=== PATIENT | male | born 1990 | race African-American/Black ===

== ENCOUNTER 2019-05-14 12:10 | Inpatient (IN) | payer MEDICAID ==
[~2019-05-14] VITALS: Ht 177.8 cm; Wt 133.6 kg
--- NOTE | 2019-05-14 12:15 | NUR ---
BIB BY ANTHON[facility] FOR WITNESSED SEIZURES (TOTAL OF 3 THIS MORNING) HX OF. EMS FOUND PATIENT A+OX1 ASSUMED POST-ICTAL. REMSA PLACED PIV AND GAVE 2MG OF IV VERSED, FSBS 128. ON KEPPRA-TOOK THIS AM BUT THREW IT UP SHORTLY THERAFTER ON ARRIVAL NON-RESPONSIVE, DROOLING, FLAILING ARMS AROUND. PROVIDER TO BEDSIDE- TO RE-MEDICATE POX 98% ON NRB
[2019-05-14] MEDS ORDERED: LORazepam 2 MG/ML, 1ML ONE ×3 (12:17→12:43)
--- NOTE | 2019-05-14 12:20 | NUR ---
PATIENT REMAIN NON-RESPONSIVE, FLAILING AERM ABOUT/DROOLING DESPITE 2 OF VERSED AND 2 OF ATIVAN- PROVIDER TO BEDSIDE-PLAN TO MEDICATE WITH ADDITIONAL 2MG OF ATIVAN AND PREPARE FOR RSI. (RT TO BEDSIDE_ JAW THRUST IN PLACE TO MAINTAIN ARM WAY AND PATIENT NOW SNORING/NRB IN PLACE AT WELL SEIZURE PADS IN PLACE
--- NOTE | 2019-05-14 12:25 | NUR ---
2MG OF VERSED 1214 2MG ATIVAN IV 1220 2MG ATIVAN IV 1225
[2019-05-14] MEDS ORDERED: PLEASE ENTER HEIGHT AND WEIGHT MC SCH (12:30)
[2019-05-14] MEDS ORDERED: LORazepam 2 MG/ML, 1ML IVPush ONE ×2 (12:30)
[2019-05-14] MEDS ORDERED: PLEASE ENTER ALLERGIES MC SCH (12:30)
[2019-05-14] MEDS ORDERED: LEVE100020 PO ×2 (12:46)
--- NOTE | 2019-05-14 12:46 | NUR ---
1238 20 of etomidate 1242 120mg od succinylcholine 8.0 tube 27cm at the lip placed at [address] Ray/Student Propofol started 15mcg/kg Soft wrist restraints in place
[2019-05-14] MEDS ORDERED: PROPOFOL 100 ML IV ONE ×2 (12:53→14:25)
--- NOTE | 2019-05-14 12:57 | NUR ---
rt made com writer/md aware that et tube cuff has leak and needs to be replaced. provider to bedside plan to exchange tube over bougie et cuff functional at this time with [employer] clamped (pox 97% on fio2 100%) propofol to 50 (from 15) and given 2mg versed at 1250 for coughing/arm movements per Dr. Ray
[2019-05-14] MEDS ORDERED: ETOMIDATE 20 MG/10 ML IVPush ONE (13:00)
[2019-05-14] MEDS ORDERED: SUCCINYLCHOLINE 20 MG/ML, 10ML IVPush ONE (13:00)
[2019-05-14] MEDS ORDERED: MIDAZOLAM 1 MG/ML, 2ML IVPush ONE ×2 (13:20→13:55)
[2019-05-14 13:32] LABS: MEAN CORPUSCULAR HEMOGLOBIN 31.3 pg (27.5-34.5); MEAN CORPUSCULAR HGB CONC 33.9 g/dL (33.2-36.2); MEAN CORPUSCULAR VOLUME 92.5 fL (81-97); MEAN PLATELET VOLUME 8.6 fL (7.4-10.4); PLATELET COUNT 276 x10^3/uL (130-400); RED BLOOD COUNT 4.98 x10^6/uL (4.38-5.82); RED CELL DISTRIBUTION WIDTH 13.3 % (9.4-14.8)
[2019-05-14 13:36] LABS: ALANINE AMINOTRANSFERASE 125 U/L (12-78); ALBUMIN 4.1 g/dL (3.4-5.0); ALKALINE PHOSPHATASE 62 U/L (45-117); ANION GAP 16 mmol/L (5-15); BILIRUBIN,TOTAL 0.4 mg/dL (0.2-1.0); CALCIUM 8.5 mg/dL (8.5-10.1); CHLORIDE 112 mmol/L (98-107); CREATININE 1.28 mg/dL (0.7-1.3); TOTAL PROTEIN 8.2 g/dL (6.4-8.2)
--- NOTE | 2019-05-14 13:43 | NUR ---
REPORT TO TONA DIAZ IN CCU & TONA NELSON IN ER, PT CARE TRANSFERRED AT THIS TIME. EDRN TO PLACE CUNHA & NG TUBE & CCU MD TO EVALUATE PRIOR TO TRANSFER TO CCU
--- NOTE | 2019-05-14 13:45 | NUR ---
RECEIVED REPORT FROM TONA CASEY.
[2019-05-14 13:47] LABS: MD YES
[2019-05-14 13:49] LABS: BAND#(MANUAL) 2.64 x10^3/uL; BANDS%(MANUAL) 16 % (0-7); EOS#(MANUAL) 0.17 x10^3/uL (0.0-0.4); EOS% (MANUAL) 1 % (1-7); LYMPH#(MANUAL) 1.16 x10^3/uL (1-3.4); LYMPHS% (MANUAL) 7 % (22-44); MONOS#(MANUAL) 1.32 x10^3/uL (0.3-2.7); MONOS% (MANUAL) 8 % (2-9); SEG#(MANUAL) 11.22 x10^3/uL (1.8-6.8); SEGS% (MANUAL) 68 % (42-75)
[2019-05-14 13:50] LABS: <PLATELET ESTIMATE> ADEQUATE; <PLT MORPHOLOGY> NORMAL PLT MORPH; ANISOCYTOSIS 1+; POLYCHROMASIA 1+
[2019-05-14] MEDS ORDERED: SODIUM CHLORIDE 0.9%, 500ML IVBOLUS ONE (14:00)
[2019-05-14] MEDS ORDERED: ENOXAPARIN 40 MG/0.4 ML SQ SCH (14:00)
--- NOTE | 2019-05-14 14:00 | NUR ---
PT HAD NG TUBE AND CUNHA PLACED PER ED ORDER. PT REPOSITIONED ON GURNEY. XR AT BEDSIDE.
--- NOTE | 2019-05-14 14:05 | NUR ---
UPDATES GIVEN TO [place], RECEIVING RN IN ICU.
[2019-05-14] MEDS ORDERED: MIDAZOLAM 1 MG/ML, 5ML ONE (14:20)
[2019-05-14] MEDS ORDERED: VECURONIUM 10 MG ONE (14:20)
[2019-05-14] MEDS ORDERED: PROPOFOL 10 MG/ML, 20ML ONE (14:20)
[2019-05-14] MEDS ORDERED: PROPOFOL 10 MG/ML, 100ML IV ONE (14:20)
[2019-05-14] MEDS ORDERED: ETOMIDATE 20 MG/10 ML ONE (14:20)
[2019-05-14] MEDS ORDERED: SUCCINYLCHOLINE 20 MG/ML, 10ML ONE (14:20)
[2019-05-14] MEDS ORDERED: VECURONIUM 10 MG IVPush ONE (15:00)
[2019-05-14] MEDS ORDERED: LEVETIRACETAM 1,000 MG in SODIUM CHLORIDE 0.9% 100 ML IV ONE (16:00)
[2019-05-14] MEDS ORDERED: DEXTROSE 50%, 50ML SYRINGE IVPush PRN (16:00)
[2019-05-14] MEDS ORDERED: DEXTROSE 4 GM TAB.CHEW PO PRN (16:00)
[2019-05-14] MEDS ORDERED: SODIUM CHLORIDE 0.9% 1,000 ML IV SCH (16:00)
[2019-05-14] MEDS ORDERED: LORazepam 2 MG/ML, 1ML IVPush PRN (16:00)
[2019-05-14] MEDS ORDERED: PHARMACY MAY ADJ FOR RENAL FX MC SCH (16:00)
[2019-05-14] MEDS ORDERED: GLUCAGON 1 MG IM PRN (16:00)
[2019-05-14] MEDS ORDERED: LIDOCAINE-MPF 1%, 2ML ENDO PRN (16:00)
[2019-05-14] MEDS: HEPARIN 5,000 UNITS/ML, 1ML SQ SCH (16:53)
[2019-05-14] MEDS: PROPOFOL 100 ML IV PRN ×3 (16:53→22:31)
[2019-05-14] MEDS: AMPICILLIN/SULBACTAM 3 GM in SODIUM CHLORIDE 0.9% 100 ML IV SCH ×2 (17:07→23:14)
[2019-05-14] MEDS: FAMOTIDINE 20 MG/2 ML IV SCH (17:09)
[2019-05-14] MEDS: INSULIN LISPRO 100 UNITS/ML, PEN SQ-INSULIN SCH ×2 (17:16→21:00)
[2019-05-14 17:32] VITALS: BP 160/91
[2019-05-14] MEDS: FENTANYL PF 100 MCG/2ML IVPush PRN ×2 (17:51→21:28)
[2019-05-14 18:40] LABS: TRIGLYCERIDES 176 mg/dL (50-200)
[2019-05-14 18:40] LABS: AMPHETAMINE SCREEN, URINE Negative (Negative); BARBITURATE SCREEN, URINE Negative (Negative); BENZODIAZEPINE SCREEN, URINE Positive (Negative); CANNABINOID SCREEN, URINE Positive (Negative); COCAINE SCREEN, URINE Negative (Negative); METHADONE SCREEN, URINE Negative (Negative); OPIATE SCREEN, URINE Negative (Negative)
[2019-05-14 18:42] LABS: CREATINE KINASE, TOTAL 470 U/L (39-308)
[2019-05-14] MEDS ORDERED: FENTANYL PF 2,500 MCG in SODIUM CHLORIDE 0.9% 200 ML IV PRN (19:00)
[2019-05-14] MEDS ORDERED: SENNA/DOCUSATE TABLET NG PRN (21:00)
[2019-05-14] MEDS ORDERED: LEVETIRACETAM 500 MG TABLET PO SCH (21:00)
[2019-05-14] MEDS ORDERED: BISACODYL 10 MG SUPP PR PRN (21:00)
[2019-05-14] MEDS ORDERED: FAMOTIDINE 20 MG/2 ML IVPush SCH (21:00)
[2019-05-14] MEDS ORDERED: SENNA 176 MG/5 ML ORAL SOL NG PRN (21:00)
[2019-05-14] MEDS: SODIUM CHLORIDE FLUSH 10ML SYR IVF SCH (22:31)
[2019-05-15] MEDS: HEPARIN 5,000 UNITS/ML, 1ML SQ SCH ×2 (00:17→08:06)
[2019-05-15] MEDS: PROPOFOL 100 ML IV PRN ×4 (00:26→08:03)
[2019-05-15] MEDS: FENTANYL PF 100 MCG/2ML IVPush PRN ×4 (00:32→07:08)
[2019-05-15 04:18] LABS: MEAN CORPUSCULAR HEMOGLOBIN 31.1 pg (27.5-34.5); MEAN CORPUSCULAR HGB CONC 33.9 g/dL (33.2-36.2); MEAN CORPUSCULAR VOLUME 91.7 fL (81-97); MEAN PLATELET VOLUME 8.4 fL (7.4-10.4); PLATELET COUNT 216 x10^3/uL (130-400); RED BLOOD COUNT 4.41 x10^6/uL (4.38-5.82); RED CELL DISTRIBUTION WIDTH 13.3 % (9.4-14.8)
[2019-05-15] MEDS: AMPICILLIN/SULBACTAM 3 GM in SODIUM CHLORIDE 0.9% 100 ML IV SCH ×2 (04:22→09:56)
[2019-05-15] MEDS: FAMOTIDINE 20 MG/2 ML IV SCH (04:22)
[2019-05-15] MEDS ORDERED: LEVETIRACETAM 750 MG in SODIUM CHLORIDE 0.9% 100 ML IV SCH (04:30)
[2019-05-15 04:36] LABS: ALANINE AMINOTRANSFERASE 86 U/L (12-78); ALBUMIN 3.3 g/dL (3.4-5.0); ANION GAP 10 mmol/L (5-15); BASOPHILS % (AUTO) 0 % (0-1); CALCIUM 8.2 mg/dL (8.5-10.1); CHLORIDE 114 mmol/L (98-107); CREATININE 3.13 mg/dL (0.7-1.3); EOSINOPHILS # (AUTO) 0.01 x10^3/uL (0-0.4); EOSINOPHILS % (AUTO) 0 % (1-7); LYMPHOCYTES # (AUTO) 1.31 x10^3/uL (1-3.4); LYMPHOCYTES % (AUTO) 12 % (22-44); MD SCAN; MONOCYTES # (AUTO) 1.09 x10^3/uL (0.2-0.8); MONOCYTES % (AUTO) 10 % (2-9); NEUTROPHILS # (AUTO) 8.54 x10^3/uL (1.8-6.8); NEUTROPHILS % (AUTO) 78 % (42-75)
[2019-05-15 04:38] LABS: ALKALINE PHOSPHATASE 47 U/L (45-117); BILIRUBIN,TOTAL 0.7 mg/dL (0.2-1.0); CREATINE KINASE, TOTAL 661 U/L (39-308); TOTAL PROTEIN 6.7 g/dL (6.4-8.2)
[2019-05-15] MEDS: INSULIN LISPRO 100 UNITS/ML, PEN SQ-INSULIN SCH (06:45)
[2019-05-15] MEDS: SODIUM CHLORIDE FLUSH 10ML SYR IVF SCH (08:06)
[2019-05-15] MEDS ORDERED: LACTULOSE 20 GM/30 ML UDC NG PRN (09:00)
--- NOTE | 2019-05-15 10:46 | NUR ---
TF Recommendations if needed: Vital HP: Full goal ON propofol: 70 ml/hr Full goal OFF propofol: 75 ml/hr
[2019-05-15] MEDS ORDERED: LEVETIRACETAM 500 MG TABLET PO SCH (21:00)
== END 2019-05-15 13:15 | disposition left against medical advice (07) | DRG 100 ==
LOC: ED 12:54 → EDIP 13:13 → CCU 14:38
PROVIDERS: ADMIT Internal Medicine; ATTEND Internal Medicine
PROC: 0BH17EZ Insertion of Endotracheal Airway into Trachea, Via Natural or Artificial Opening (ICD-10-PCS; principal; 2019-05-14)
PROC: 5A1935Z Respiratory Ventilation, Less than 24 Consecutive Hours (ICD-10-PCS; 2019-05-14)
PROC: 0B21XEZ Change Endotracheal Airway in Trachea, External Approach (ICD-10-PCS; 2019-05-14)
DX: G40.201 Localization-related (focal) (partial) symptomatic epilepsy and epileptic syndromes with complex partial seizures, not intractable, with status epilepticus (principal); J96.02 Acute respiratory failure with hypercapnia; T85.638A Leakage of other specified internal prosthetic devices, implants and grafts, initial encounter; E87.2 Acidosis; Z68.41 Body mass index [BMI] 40.0-44.9, adult; N17.9 Acute kidney failure, unspecified; Y83.8 Other surgical procedures as the cause of abnormal reaction of the patient, or of later complication, without mention of misadventure at the time of the procedure; Y92.238 Other place in hospital as the place of occurrence of the external cause; E86.0 Dehydration; Z53.21 Procedure and treatment not carried out due to patient leaving prior to being seen by health care provider; J32.9 Chronic sinusitis, unspecified; R74.8 Abnormal levels of other serum enzymes; D72.825 Bandemia; E66.9 Obesity, unspecified
CPT/HCPCS: 31500; 36415; 36600; 51702; 84145; 99291; J3490; 70450; 71045; 80053; 80307; 82550; 82803; 82962; 83605; 83735; 84100; 84478; 85025; 87040; 87070; 87081; 87205; 93005; 94002; 94003; 95819; 96374; 96375; G0378; J0295; J1644; J1953; J2250; J2704; J3010; J0330; J1815; J2060; J7030; J7040